=== PATIENT | female | born 1960 | race Caucasian/White ===

== ENCOUNTER 2017-10-19 15:58 | Emergency (ER) | payer BC ==
--- NOTE | 2017-10-19 16:10 | PDOC ---
Rapid Medical Evaluation Chief Complaint: Chest Pain Time Seen by Provider: 10/19/17 16:08 Medical Evaluation: Allergies Allergy/AdvReac Type Severity Reaction Status Date / Time No Known Allergies Allergy Verified 08/04/16 17:32 10/19/17 16:09 I have performed a brief in-person evaluation of this patient. The patient presents with a chief complaint of: Chest pain x 3 days. H/o GERD Pertinent physical exam findings:Stable w/ clear chest/lungs I have ordered the following:ekg/cxr/labs The patient will proceed to the ED for further evaluation.
[2017-10-19 16:12] VITALS: TEMP 98.2; BMI 32.5
[2017-10-19 16:39] LABS: BASO % 0.8 % (0-2.0); EOS % 1.8 % (0-4.5); HEMATOCRIT 38.3 % (32.4-45.2); HEMOGLOBIN 12.5 GM/dL (10.7-15.3); LYMPH % 34.9 % (8-40); MCH 28.8 pg (25.7-33.7); MCHC 32.6 g/dl (32.0-36.0); MEAN CELL VOLUME 88.5 fl (80-96); MONO % 8.5 % (3.8-10.2); PLATELET COUNT 245 K/MM3 (134-434); RBC 4.33 M/mm3 (3.60-5.2); WHITE BLOOD COUNT 5.9 K/mm3 (4.0-10.0)
[2017-10-19 17:22] LABS: ALBUMIN 4.3 g/dl (3.4-5.0); ANION GAP 6 (8-16); BLOOD UREA NITROGEN 18 mg/dL (7-18); CALCIUM 9.1 mg/dL (8.5-10.1); CHLORIDE 104 mmol/L (98-107); CO2 30 mmol/L (21-32); GLUCOSE,RANDOM 97 mg/dL (74-106); POTASSIUM 4.6 mmol/L (3.5-5.1); SGOT/AST 22 U/L (15-37); SGPT/ALT 41 U/L (12-78); SODIUM 140 mmol/L (136-145)
[2017-10-19 17:41] LABS: ALK PHOS 71 U/L (45-117); BILIRUBIN,TOTAL 0.3 mg/dL (0.2-1.0); TOT PROT 7.1 g/dl (6.4-8.2)
[2017-10-19 17:41] LABS: URINE APPEARANCE CLEAR; URINE BILIRUBIN NEGATIVE (NEGATIVE); URINE BLOOD 1+ (NEGATIVE); URINE COLOR COLORLESS; URINE GLUCOSE (UA) NEGATIVE (NEGATIVE); URINE KETONE NEGATIVE (NEGATIVE); URINE LEUK ESTERASE NEGATIVE (NEGATIVE); URINE NITRITE NEGATIVE (NEGATIVE); URINE PROTEIN NEGATIVE (NEGATIVE); URINE UROBILINOGEN NEGATIVE mg/dL (0.2-1.0)
[2017-10-19 17:50] LABS: URINE BACTERIA RARE /hpf (NONE SEEN)
--- NOTE | 2017-10-19 18:41 | PDOC ---
History of Present Illness - General Chief Complaint: Chest Pain Stated Complaint: CHEST PAIN Time Seen by Provider: 10/19/17 16:08 - History of Present Illness Initial Comments: 10/19/17 18:32 "The patient is 56 a year old female, with a significant past medical history of GERD, who presents to the emergency department with left sided chest pain for 2 days. She states the pain came on suddenly and has been 4/10 in severity. She states the pain is now radiating to her left shoulder. Pt states that the pain is not exertional, not pleuritic. She denies SOB. Denies back pain. Denies leg swelling. Denies h/o DVT/PE. Denies recent immobilization or hospitalization. Denies OCP or estrogen use. She denies dizziness. She denies fever, chills, nausea, vomit, diarrhea and constipation. She denies dysuria, frequency, urgency and hematuria. Allergies: NKDA PCP: Dr. Hector Buckner " Past History - Past Medical History Allergies/Adverse Reactions: Allergies Allergy/AdvReac Type Severity Reaction Status Date / Time No Known Allergies Allergy Verified 08/04/16 17:32 Home Medications: Ambulatory Orders Pantoprazole Sodium [Protonix -] 40 mg PO DAILY 03/23/14 Venlafaxine HCl ER [Effexor Xr -] 37.5 mg PO DAILY 12/08/15 Meloxicam [Mobic (Nf) -] 15 mg PO HS 08/04/16 Oxycodone HCl/Acetaminophen [Percocet 5-325 mg Tablet] 1 - 2 tab PO Q6H PRN #12 tab MDD 4 08/04/16 COPD: No GI Disorders: Yes (GERD) Other medical history: arthritis - Surgical History Cholecystectomy: Yes Orthopedic Surgery: Yes - Family Disease History Family Disease History: CA: Mother - Immunization History Td Vaccination: Yes Immunization Up to Date: Yes - Suicide/Smoking/Psychosocial Hx Smoking Status: No Smoking History: Never smoked Number of Cigarettes Smoked Daily: 0 Information on smoking cessation initiated: No Hx Alcohol Use: No Drug/Substance Use Hx: No Substance Use Type: None Hx Substance Use Treatment: No Review of Systems - Review of Systems Comments:: 10/19/17 18:33 """GENERAL/CONSTITUTIONAL: No fever or chills. No weakness. HEAD, EYES, EARS, NOSE AND THROAT: No change in vision. No ear pain or discharge. No sore throat. CARDIOVASCULAR: (+) left sided chest pain, no SOB RESPIRATORY: No cough, wheezing, or hemoptysis. GASTROINTESTINAL: No nausea, vomiting, diarrhea or constipation. GENITOURINARY: No dysuria, frequency, or change in urination. MUSCULOSKELETAL: No joint or muscle swelling or pain. No neck or back pain. SKIN: No rash NEUROLOGIC: No headache, vertigo, loss of consciousness, or change in strength/ sensation. ENDOCRINE: No increased thirst. No abnormal weight change. HEMATOLOGIC/LYMPHATIC: No anemia, easy bleeding, or history of blood clots. ALLERGIC/IMMUNOLOGIC: No hives or skin allergy. """ *Physical Exam - Vital Signs Last Vital Signs Temp Pulse Resp BP Pulse Ox 98.2 F 77 18 120/62 100 10/19/17 16:09 10/19/17 16:09 10/19/17 16:09 10/19/17 16:09 10/19/17 16:09 - Physical Exam Comments: 10/19/17 18:33 """GENERAL: Awake, alert, and fully oriented, in no acute distress HEAD: No signs of trauma EYES: PERRLA, EOMI, sclera anicteric, conjunctiva clear ENT: Auricles normal inspection, hearing grossly normal, nares patent, oropharynx clear without exudates. Moist mucosa NECK: Nontender, no stepoffs, Normal ROM, supple, no lymphadenopathy, JVD, or masses LUNGS: Breath sounds equal, clear to auscultation bilaterally. No wheezes, and no crackles HEART: Regular rate and rhythm, normal S1 and S2, no murmurs, rubs or gallops ABDOMEN: Soft, nontender, normoactive bowel sounds. No guarding, no rebound. No masses EXTREMITIES: Normal range of motion, no edema. No clubbing or cyanosis. No cords, erythema, or tenderness NEUROLOGICAL: Cranial nerves II through XII intact. 5/5 strength and sensation in all extremities, Normal speech, normal gait SKIN: Warm, Dry, normal turgor, no rashes or lesions noted. """ Heart Score/ECG Review - History History: Slightly suspicious - Electrocardiogram EKG: Normal - Age Age: 45-65 - Risk Factors Based on the list above the patient has:: No risk factors known - Troponin Troponin: </= normal limit - Score Heart Score - Total: 1 - ECG Impressions Comment:: NSR, no RENAN/STDs, no TWIs, axis wnl, intervals wnl, rate 77 ED Treatment Course - LABORATORY CBC & Chemistry Diagram: 10/19/17 16:30 10/19/17 16:30 - ADDITIONAL ORDERS Additional order review: Laboratory Results 10/19/17 10/19/17 17:25 16:30 Sodium 140 Potassium 4.6 Chloride 104 Carbon Dioxide 30 Anion Gap 6 L BUN 18 Creatinine 1.0 Creat Clearance w eGFR 57.35 Random Glucose 97 Calcium 9.1 Total Bilirubin 0.3 D AST 22 ALT 41 Alkaline Phosphatase 71 Creatine Kinase 141 Troponin I < 0.02 Total Protein 7.1 Albumin 4.3 Urine Color Colorless Urine Appearance Clear Urine pH 6.0 Ur Specific [place] 1.005 Urine Protein Negative Urine Glucose (UA) Negative Urine Ketones Negative Urine Blood 1+ H Urine Nitrite Negative Urine Bilirubin Negative Urine Urobilinogen Negative Ur Leukocyte Esterase Negative 10/19/17 16:30 RBC 4.33 MCV 88.5 MCHC 32.6 RDW 14.0 MPV 7.0 L Neutrophils % 54.0 Lymphocytes % 34.9 D Monocytes % 8.5 Eosinophils % 1.8 D Basophils % 0.8 Medical Decision Making - Medical Decision Making 10/19/17 18:35 56 F with atypical L sided chest pain x 2 days. EKG nonischemic. Possible GERD related or msk. Pt with no PE risk factors. Wells score 0. - CXR clear - Trop negative - Labs unremarkable Pt well appearing, vitals normal, clinically stable for DC. *DC/Admit/Observation/Transfer Diagnosis at time of Disposition: Chest pain - Discharge Dispostion Disposition: HOME - Referrals Referrals: Lesa Buckner MD [Primary Care Provider] - - Patient Instructions Printed Discharge Instructions: DI for Atypical Chest Pain Additional Instructions: Please follow up with a broker associate within 1 week for further evaluation of your chest pain. Even though your tests today were normal, we cannot rule out all heart disease. Call your primary doctor for a referral or call the number provided to make an appointment with our cardiology clinic. If you experience worsening chest pain, shortness of breath, lightheadedness, or any other concerning symptoms, return to the ER immediately. - Post Discharge Activity - Attestations Physician Attestion: 10/19/17 18:41 I, Dr. Rob Miner MD, attest that this document has been prepared under my direction and personally reviewed by me in its entirety. I further attest, that it accurately reflects all work, treatment, procedures and medical decision -making performed by me.
[2017-10-19 19:01] VITALS: BP 120/70; PULSE 80
--- NOTE | 2017-10-20 08:02 | EKG ---
Test Reason : Blood Pressure : / mmHG Vent. Rate : 077 BPM Atrial Rate : 077 BPM P-R Int : 150 ms QRS Dur : 086 ms QT Int : 412 ms P-R-T Axes : 051 005 018 degrees QTc Int : 466 ms NORMAL SINUS RHYTHM POSSIBLE INFERIOR INFARCT (CITED ON OR BEFORE 08-DEC-2015) CANNOT RULE OUT ANTERIOR INFARCT , AGE UNDETERMINED ABNORMAL ECG WHEN COMPARED WITH ECG OF 08-DEC-2015 12:55, NO SIGNIFICANT CHANGE WAS FOUND Confirmed by DAINA VIVEROS MD ([id number]) on 10/20/2017 8:02:18 AM Referred By: Confirmed By:DAINA VIVEROS MD
== END 2017-10-19 19:10 | disposition home or self-care (01) ==
LOC: JER 15:58
DX: K21.9 Gastro-esophageal reflux disease without esophagitis (principal)
CPT/HCPCS: 36415; 71046-TC; 80053; 81003; 81015; 82550; 84484; 85025; 93005; 93010; 99282-25